=== PATIENT | female | born 1965 | race Caucasian/White ===

== ENCOUNTER 2017-04-07 14:30 | Emergency (ER) | payer MEDICAID, OTHER ==
[2017-04-07 15:07] VITALS: BMI 28.1
[2017-04-07] MEDS ORDERED: Sodium Chloride 0.9% 1,000 ML IV ONE (15:09)
--- NOTE | 2017-04-07 15:13 | C.PDOC ---
History Of Present Illness 51 y/o female presents to emergency department with complaint of bilateral flank pain, worse on the left side, for 2 days. Patient reports pain initially started as left lower abdominal pain about 1 week ago, progressively worsening, associated with urinary frequency. Patient reports noticing some blood in her urine as well. Otherwise, denies fever, chills, nausea, vomiting, diarrhea, or other associated symptoms. Time Seen by Provider: 04/07/17 15:04 Chief Complaint (Nursing): Back Pain History Per: Patient History/Exam Limitations: no limitations Onset/Duration Of Symptoms: Days Current Symptoms Are (Timing): Still Present Quality Of Discomfort: "Pain" Previous Symptoms: None Recent travel outside of the [place]: No Past Medical History Reviewed: Historical Data, Nursing Documentation, Vital Signs Vital Signs: Last Vital Signs Temp 99.2 F 04/07/17 17:20 Pulse 76 04/07/17 17:20 Resp 16 04/07/17 17:20 BP 113/66 04/07/17 17:20 Pulse Ox 99 04/07/17 17:20 - Medical History PMH: No Chronic Diseases Family History: States: Unknown Family Hx - Social History Hx Alcohol Use: No Hx Substance Use: No - Immunization History Hx Tetanus Toxoid Vaccination: No Hx Influenza Vaccination: No Hx Pneumococcal Vaccination: No Review Of Systems Constitutional: Negative for: Fever, Chills Gastrointestinal: Positive for: Other (Flank Pain). Negative for: Nausea, Vomiting Genitourinary: Positive for: Frequency, Hematuria (scant). Negative for: Vaginal Discharge, Vaginal Bleeding Skin: Negative for: Rash Neurological: Negative for: Headache, Dizziness Physical Exam - Physical Exam Appears: Non-toxic, No Acute Distress Skin: Warm, Dry Head: Atraumatic, Normacephalic Eye(s): bilateral: Normal Inspection, EOMI Oral Mucosa: Moist Neck: Normal ROM Chest: Symmetrical Cardiovascular: Rhythm Regular Respiratory: Normal Breath Sounds, No Rales, No Rhonchi, No Wheezing Gastrointestinal/Abdominal: Soft, Tenderness (left flank), No Guarding Extremity: Bilateral: Atraumatic, Normal Color And Temperature, Normal ROM Neurological/Psych: Oriented x3, Normal Speech Gait: Steady ED Course And Treatment - Laboratory Results Result Diagrams: 04/07/17 15:37 04/07/17 15:37 Lab Interpretation: Abnormal O2 Sat by Pulse Oximetry: 100 (RA) Pulse Ox Interpretation: Normal - CT Scan/US abd/pelvis Other Rad Studies (CT/US): Read By Radiologist, Radiology Report Reviewed CT/US Interpretation: Creator : Ottoniel Weaver MD. Dictator : Ottoniel Weaver MD. Medical Engineer : Bottle Hop : Ottoniel Wevaer MD. Approver2 : Report Date : 04/07/2017 16:16:43. My Comment : . PROCEDURE: CT Abdomen and Pelvis without intravenous contrast. HISTORY: left flank pain. COMPARISON : Comparison is made to the previous study dated 03/15/2012. TECHNIQUE: Axial and reformatted coronal and sagittal CT images of the abdomen and pelvis were obtained without IV or oral contrast administration.. Contrast Dose: 0. Radiation dose: Total exam DLP = 613.51 mGy-cm. This CT exam was performed using one or more of the following dose reduction techniques: Automated exposure control, adjustment of the mA and/or kV according to patient size, and/ or use of iterative reconstruction technique. FINDINGS: LOWER THORAX: Unremarkable. LIVER: Unremarkable. No gross lesion or ductal dilatation. GALLBLADDER AND BILE DUCTS: The gall bladder is contracted very small in size. PANCREAS: Unremarkable. No gross lesion or ductal dilatation. SPLEEN: Unremarkable. ADRENALS: Unremarkable. No mass. KIDNEYS AND URETERS: No evidence of nephrolithiasis. Mild left perinephric stranding seen. Slightly dilated left kidney collecting system noted. Correlate clinically for possible infectious process. The right kidney is grossly unremarkable. VASCULATURE: Unremarkable. No aortic aneurysm. BOWEL: Unremarkable. No obstruction. No gross mural thickening. APPENDIX: No evidence of appendicitis. PERITONEUM: Unremarkable. No free fluid. No free air. LYMPH NODES: Unremarkable. No enlarged lymph nodes. BLADDER: Mild urinary bladder wall thickening. REPRODUCTIVE: Unremarkable. BONES: No acute fracture. OTHER FINDINGS: None. IMPRESSION: No evidence of nephrolithiasis. Mild left perinephric stranding and slightly dilated left kidney collecting system noted. Correlate clinically for possible infectious process/ pyelonephritis or UTI. Otherwise no evidence of acute pathology in the abdomen and pelvis. Medical Decision Making Medical Decision Making: Impression: flank pain and urinary symptoms Prior records reviewed: Plan: * Labs * CT * IV NS, Toradol Progress: Labs reviewed showing mild leukocytosis 11 and hypokalemia. Patient receiving IV NS and KCL PO. CT showed no evidence of nephrolithiasis. Mild left perinephric stranding and slightly dilated left kidney collecting system which is consistent with UTI/pyelonephritis. Order IV Rocephin. Upon reevaluation patient reports feeling better, pain has much improved. She has no fever and stable vital signs, abdomen soft nontender. I discussed all results with patient and provide copy of reports. Patient stable for discharge. Advise to drink fluids and to follow up with PCP in few days. rx was given. Disposition Counseled Patient/Family Regarding: Diagnosis, Need For Followup, Rx Given - Disposition Referrals: Olga Cordova MD [Staff Provider] - Disposition: HOME/ ROUTINE Disposition Time: 17:45 Condition: IMPROVED Additional Instructions: Lanie laboratorios y CT muestran infeccin de orina. Fue tratado con antibiticos y debe continuar tomando antibiticos orales dos veces al da maryan ilana semana. Gina muchos lquidos, descanse y tambin puede joão ibuprofeno para cualquier dolor. Kanika un seguimiento con lozada mdico o clnica principal en 1 semana para ilana evaluacin ms detallada. Prescriptions: Ciprofloxacin HCl [Cipro] 500 mg PO BID #14 tab Instructions: Acute Pyelonephritis (DC) Forms: [employer] (Nepali) Print Language: GREEK - POA Present On Arrival: None - Clinical Impression Clinical Impression: Pyelonephritis
[2017-04-07] MEDS ORDERED: Sodium Chloride 0.9% 1,000 ML ONE (15:29)
[2017-04-07 15:42] LABS: BASO % 0.3 % (0.0-2.0); EOS % 0.4 % (0.0-4.0); HEMATOCRIT 35.4 % (34.0-47.0); LYMPH # 1.9 K/uL (1.0-4.3); LYMPH % 16.5 % (20.0-40.0); MEAN CORPUSCULAR HEMOGLOBIN 25.4 pg (27.0-31.0); MEAN CORPUSCULAR HGB CONC 32.1 g/dL (33.0-37.0); MEAN PLATELET VOLUME 9.2 fL (7.2-11.7); MONO # 0.8 K/uL (0.0-0.8); MONO % 7.5 % (0.0-10.0); RED CELL DISTRIBUTION WIDTH 16.3 % (11.5-14.5); WHITE BLOOD COUNT 11.2 K/uL (4.8-10.8)
[2017-04-07 15:48] LABS: RBC URINE 24 /hpf (0-3); URINE BACTERIA RARE (<OCC); URINE BILIRUBIN NEGATIVE (NEGATIVE); URINE BLOOD 2+ (NEGATIVE); URINE COLOR Yellow (YELLOW); URINE GLUCOSE (UA) NORMAL (Normal); URINE KETONE NEGATIVE (NEGATIVE); URINE LEUKOCYTE ESTERASE 1+ Leu/uL (Negative); URINE PROTEIN NEGATIVE (NEGATIVE); WBC URINE 16 /hpf (0-5)
[2017-04-07 15:55] LABS: CHLORIDE 94 mmol/L (98-107)
[2017-04-07 15:56] LABS: POTASSIUM 3.2 mmol/L (3.6-5.2); SODIUM 133 mmol/L (132-148)
[2017-04-07 15:59] LABS: ALKALINE PHOSPHATASE 128 U/L (38-126); ALT/SGPT 88 U/L (9-52); AST/SGOT 108 U/L (14-36); BILIRUBIN,TOTAL 1.4 mg/dL (0.2-1.3); BLOOD UREA NITROGEN 11 mg/dL (7-17); CARBON DIOXIDE 27 mmol/L (22-30); GFR AFRICAN-AMERICAN > 60; GLUCOSE,RANDOM 105 mg/dL (65-105); TOTAL PROTEIN 9.2 g/dL (6.3-8.3)
[2017-04-07 16:00] LABS: CALCIUM 9.9 mg/dl (8.6-10.4)
[2017-04-07] MEDS ORDERED: Potassium Chloride 20 mEq ER Tab PO STA (16:17)
--- NOTE | 2017-04-07 16:18 | CT ---
PROCEDURE: CT Abdomen and Pelvis without intravenous contrast HISTORY: left flank pain COMPARISON: Comparison is made to the previous study dated 03/15/2012 TECHNIQUE: Axial and reformatted coronal and sagittal CT images of the abdomen and pelvis were obtained without IV or oral contrast administration.. Contrast Dose: 0 Radiation dose: Total exam DLP = 613.51 mGy-cm. This CT exam was performed using one or more of the following dose reduction techniques: Automated exposure control, adjustment of the mA and/or kV according to patient size, and/or use of iterative reconstruction technique. FINDINGS: LOWER THORAX: Unremarkable. LIVER: Unremarkable. No gross lesion or ductal dilatation. GALLBLADDER AND BILE DUCTS: The gall bladder is contracted very small in size. PANCREAS: Unremarkable. No gross lesion or ductal dilatation. SPLEEN: Unremarkable. ADRENALS: Unremarkable. No mass. KIDNEYS AND URETERS: No evidence of nephrolithiasis. Mild left perinephric stranding seen. Slightly dilated left kidney collecting system noted. Correlate clinically for possible infectious process. The right kidney is grossly unremarkable. VASCULATURE: Unremarkable. No aortic aneurysm. BOWEL: Unremarkable. No obstruction. No gross mural thickening. APPENDIX: No evidence of appendicitis. PERITONEUM: Unremarkable. No free fluid. No free air. LYMPH NODES: Unremarkable. No enlarged lymph nodes. BLADDER: Mild urinary bladder wall thickening. REPRODUCTIVE: Unremarkable. BONES: No acute fracture. OTHER FINDINGS: None. IMPRESSION: No evidence of nephrolithiasis. Mild left perinephric stranding and slightly dilated left kidney collecting system noted. Correlate clinically for possible infectious process/ pyelonephritis or UTI. Otherwise no evidence of acute pathology in the abdomen and pelvis.
[2017-04-07] MEDS ORDERED: Potassium Chloride 20 mEq ER Tab PO ONE (16:25)
[2017-04-07] MEDS ORDERED: cefTRIAXone IV 1 gm in Dextros 50 ML IV STA (16:46)
[2017-04-07] MEDS ORDERED: cefTRIAXone IV 1 gm in Dextros 50 ML IVPB ONE (17:07)
[2017-04-07 17:21] VITALS: BP 113/66; PULSE 76; RESP 16; TEMP 99.2
[2017-04-07 18:56] VITALS: O2SAT 100
== END 2017-04-07 17:45 | disposition home or self-care (01) ==
LOC: C.ER 14:30
DX: N12 Tubulo-interstitial nephritis, not specified as acute or chronic (principal)
CPT/HCPCS: 74176; 80053; 81001; 83690; 85025; 87086; 87181; 96361; 96365; 96375; 99283; J0696; J1885; J2405; J7040

== ENCOUNTER 2017-05-27 09:03 | Emergency (ER) | payer MEDICAID, OTHER ==
[2017-05-27 09:04] VITALS: BMI 28.1
[2017-05-27 09:10] VITALS: BP 152/86; PULSE 75; RESP 19; TEMP 98.1; O2SAT 96
--- NOTE | 2017-05-27 09:32 | C.PDOC ---
History Of Present Illness 51 yr old female presents to the ER with complaints of sinus congestion, non productive cough and subjective fever for the past 1 week. Patient reports minimal relief with phenergan cough syrup (using from other family member). Patient denies history of smoking, chest pain, SOB, ROSARIO, nausea, vomiting or headache. 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 +MIN RELIEF W PHENERGAN COUGH SYRUP (USING FROM OTHER FAMILY MEMBER). NO SOB, ROSARIO. DENIES SMOKING. EXAM NONTOXIC NARD HEENT +SINUS TAYO W RHINORRHEA LUNGS CTA B/L NO W/R/R REMAINDER NEG MDM REQUESTING DIFF COUGH RX PRESCRIPTION. VIRAL Time Seen by Provider: 05/27/17 09:20 Chief Complaint (Nursing): Flu-like Symptoms History Per: Patient History/Exam Limitations: no limitations Onset/Duration Of Symptoms: Days (1 week) Past Medical History Reviewed: Historical Data, Nursing Documentation, Vital Signs Vital Signs: Last Vital Signs Temp 98.1 F 05/27/17 09:09 Pulse 75 05/27/17 09:09 Resp 19 05/27/17 09:09 BP 152/86 H 05/27/17 09:09 Pulse Ox 96 05/27/17 10:23 Family History: States: No Known Family Hx - Social History Hx Alcohol Use: No Hx Substance Use: No - Immunization History Hx Tetanus Toxoid Vaccination: No Hx Influenza Vaccination: No Hx Pneumococcal Vaccination: No Review Of Systems Except As Marked, All Systems Reviewed And Found Negative. Constitutional: Positive for: Fever (Subjective) ENT: Positive for: Other ((+) Sinus congestion) Cardiovascular: Negative for: Chest Pain Respiratory: Positive for: Cough (Non productive). Negative for: Shortness of Breath Gastrointestinal: Negative for: Nausea, Vomiting Neurological: Negative for: Headache Physical Exam - Physical Exam Appears: Non-toxic, No Acute Distress, Other (NARD) Skin: Warm, Dry, No Rash Head: Atraumatic, Normacephalic Eye(s): bilateral: Normal Inspection, PERRL, EOMI Ear(s): Bilateral: Normal Nose: Other (Sinus congestion with rhinorrhea) Oral Mucosa: Moist Neck: Normal, Normal ROM, Supple Cardiovascular: Rhythm Regular, No Murmur Respiratory: Normal Breath Sounds, No Rales, No Rhonchi, No Stridor, No Wheezing Extremity: Normal ROM, No Swelling Neurological/Psych: Oriented x3, Normal Speech, Normal Motor ED Course And Treatment O2 Sat by Pulse Oximetry: 96 (RA) Pulse Ox Interpretation: Normal Medical Decision Making Medical Decision Making: NOTE: REQUESTING DIFF COUGH RX PRESCRIPTION. VIRAL Disposition Counseled Patient/Family Regarding: Diagnosis, Need For Followup, Rx Given - Disposition Referrals: [facility] [Outside] [facility] [Outside] Disposition: HOME/ ROUTINE Disposition Time: 09:31 Condition: GOOD Prescriptions: Benzonatate [Tessalon Perles] 200 mg PO TID PRN #15 sgl PRN Reason: Cough Pseudoephedrine HCl [Sudafed 24 Hour] 240 mg PO DAILY PRN #1 unit PRN Reason: Sinus Symptoms Instructions: Cold Symptoms (ED) Forms: [employer] (Danish) Print Language: SINHALA - Clinical Impression Clinical Impression: Cold - Scribe Statement The provider has reviewed the documentation as recorded by the Lee Carrera Provider Attestation: All medical record entries made by the Aleksandraibdeni were at my direction and personally dictated by me. I have reviewed the chart and agree that the record accurately reflects my personal performance of the history, physical exam, medical decision making, and the department course for this patient. I have also personally directed, reviewed, and agree with the discharge instructions and disposition.
== END 2017-05-27 09:35 | disposition home or self-care (01) ==
LOC: C.ER 09:03
DX: J00 Acute nasopharyngitis [common cold] (principal)

== ENCOUNTER 2017-09-15 11:38 | Emergency (ER) | payer OTHER ==
[2017-09-15 11:38] VITALS: BMI 28.1
[2017-09-15] MEDS ORDERED: Sodium Chloride 0.9% 1,000 ML IV ONE (12:18)
--- NOTE | 2017-09-15 12:18 | C.PDOC ---
History Of Present Illness 51-year-old female, presents to the emergency department with multiple complaints. Patient states she has been experiencing a frontal headache, described as pounding, for the past four weeks, with associated bilateral eye pain. Patient is taking Advil at home with mild improvement. Additionally, states she has been experiencing palpitations intermittently for six weeks, occasional right chest discomfort, and right leg pain. Patient does not have a doctor. Last check up in [place] eight months ago, where she was told that she is pre-diabetic. Denies visual changes, dizziness, vomiting, numbness/ weakness, shortness of breath or any other associated symptoms. No other complaints at this time. Time Seen by Provider: 09/15/17 11:59 Chief Complaint (Nursing): Headache History Per: Patient History/Exam Limitations: no limitations Past Medical History Reviewed: Historical Data, Nursing Documentation, Vital Signs Vital Signs: Last Vital Signs Temp 98.2 F 09/15/17 11:49 Pulse 70 09/15/17 13:12 Resp 18 09/15/17 13:12 BP 116/73 09/15/17 13:12 Pulse Ox 96 09/15/17 15:32 - Medical History PMH: No Chronic Diseases Surgical History: No Surg Hx Family History: States: No Known Family Hx - Social History Hx Alcohol Use: Yes Hx Substance Use: No - Immunization History Hx Tetanus Toxoid Vaccination: No Hx Influenza Vaccination: No Hx Pneumococcal Vaccination: No Review Of Systems Constitutional: Negative for: Fever Eyes: Positive for: Pain Cardiovascular: Positive for: Palpitations Respiratory: Negative for: Cough, Shortness of Breath Gastrointestinal: Negative for: Vomiting Musculoskeletal: Positive for: Leg Pain Skin: Negative for: Rash Neurological: Positive for: Headache. Negative for: Weakness, Numbness, Dizziness Physical Exam - Physical Exam Appears: Non-toxic, No Acute Distress Skin: Warm, Dry, No Rash Head: Atraumatic, Normacephalic, No Tenderness Eye(s): bilateral: Normal Inspection, PERRL, EOMI Nose: Normal Oral Mucosa: Moist Lips: Normal Appearing Neck: Normal ROM, Other (No goiter, No thyroid tenderness. No nodules) Lymphatic: Normal Exam, No Adenopathy Cardiovascular: Rhythm Regular, No Murmur Respiratory: Normal Breath Sounds, No Accessory Muscle Use, No Wheezing Gastrointestinal/Abdominal: Soft, No Tenderness, No Guarding Back: Normal Inspection, No Vertebral Tenderness, No Paraspinal Tenderness Extremity: No Deformity, No Swelling Neurological/Psych: Oriented x3, Normal Speech, Normal Cranial Nerves, Normal Motor, Normal Sensation, Other (No focal deficit) Gait: Steady ED Course And Treatment - Laboratory Results Result Diagrams: 09/15/17 12:33 09/15/17 12:33 Lab Interpretation: No Acute Changes ECG: Interpreted By Me, Viewed By Me ECG Rhythm: Sinus Rhythm ECG Interpretation: No Acute Changes Rate From EC O2 Sat by Pulse Oximetry: 96 (RA) Pulse Ox Interpretation: Normal - CT Scan/US CT HEAD Other Rad Studies (CT/US): Read By Radiologist, Radiology Report Reviewed CT/US Interpretation: Accession No. : [id number]. Patient Name / ID : TONJA JACKSON R / [id number]. Exam Date : 09/15/2017 12:37:38 ( Approved ). Study Comment : Sex / Age : F / 51Y. Creator : Sowmya Ibrahim. Dictator : Heavy Duty Truck Mechanic : Lathe Spotter : Rahul Mendez MD. Approver2 : Report Date : 12:41:35. My Comment : . PROCEDURE: CT scan of the brain 2017. HISTORY: Headache frontal x 4 weeks. COMPARISON: None available. TECHNIQUE: Axial computed tomography images were obtained through the head/ brain without intravenous contrast. Radiation dose: Total exam DLP = 920.17 mGy-cm. This CT exam was performed using one or more of the following dose reduction techniques: Automated exposure control, adjustment of the mA and/or kV according to patient size, and/or use of iterative reconstruction technique. FINDINGS: HEMORRHAGE: No acute parenchymal, subarachnoid or extra-axial hemorrhage. . BRAIN: No mass effect or edema. No atrophy or chronic microvascular ischemic changes. VENTRICLES: No obstructive hydrocephalus. CALVARIUM: There are no acute calvarial fractures. OpenUnremarkable. PARANASAL SINUSES: Unremarkable as visualized. No significant inflammatory changes. MASTOID AIR CELLS: Unremarkable as visualized. No inflammatory changes. OTHER FINDINGS: None. IMPRESSION: No acute intracranial hemorrhage. Medical Decision Making Medical Decision Making: Impression: headache, palpitations, hot flashes; symptoms likely related to menopause, thyroid or anxiety Plan: * Labs * Urine * Head CT * IV NS, Reglan, Tylenol Progress: Labs reviewed and unremarkable, no abnormality in Thyroid function Head CT shows No acute intracranial hemorrhage. Re-Eval: Patient resting supine on stretcher in no distress. She reports feeling better, headache resolved. She has no fever or nuchal rigidity. Vital signs are stable and no neuro deficits. Patient is stable for discharge. I discussed results and provided copy of lab and Ct report. 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 Disposition Counseled Patient/Family Regarding: Diagnosis, Need For Followup, Rx Given - Disposition Referrals: Olga Cordova MD [Staff Provider] - Disposition: HOME/ ROUTINE Disposition Time: 13:39 Condition: IMPROVED Additional Instructions: hacer un seguimiento con ob / administrative judge y clnica para ms cuidados [place] medicamento para el dolor segn sea necesario Prescriptions: Ibuprofen [Motrin] 600 mg PO Q8 #30 tab Instructions: Menopause Forms: [employer] (Solomon Islander) Print Language: ALGERIAN - POA Present On Arrival: None - Clinical Impression Clinical Impression: Headache, Menopausal hot flushes - Scribe Statement The provider has reviewed the documentation as recorded by the Scribe (Gladis Norwood) All medical record entries made by the Scribe were at my direction and personally dictated by me. I have reviewed the chart and agree that the record accurately reflects my personal performance of the history, physical exam, medical decision making, and the department course for this patient. I have also personally directed, reviewed, and agree with the discharge instructions and disposition.
[2017-09-15 12:42] LABS: BASO % 0.3 % (0.0-2.0); EOS # 0.3 K/uL (0.0-0.7); EOS % 4.1 % (0.0-4.0); HEMOGLOBIN 12.6 g/dL (11.0-16.0); LYMPH # 2.6 K/uL (1.0-4.3); LYMPH % 36.6 % (20.0-40.0); MEAN CELL VOLUME 77.9 fL (81.0-99.0); MEAN CORPUSCULAR HEMOGLOBIN 25.3 pg (27.0-31.0); MEAN CORPUSCULAR HGB CONC 32.4 g/dL (33.0-37.0); MEAN PLATELET VOLUME 9.2 fL (7.2-11.7); MONO # 0.6 K/uL (0.0-0.8); MONO % 7.7 % (0.0-10.0); NEUT # 3.7 K/uL (1.8-7.0); NEUT % 51.3 % (50.0-75.0); RBC 4.97 Mil/uL (3.80-5.20); RED CELL DISTRIBUTION WIDTH 17.8 % (11.5-14.5); WHITE BLOOD COUNT 7.2 K/uL (4.8-10.8)
[2017-09-15 12:53] LABS: SQUAMOUS EPITHIAL 12 /hpf (0-5); URINE BILIRUBIN NEGATIVE (NEGATIVE); URINE BLOOD NEGATIVE (NEGATIVE); URINE CLARITY Hazy (Clear); URINE COLOR Yellow (YELLOW); URINE GLUCOSE (UA) NORMAL (Normal); URINE LEUKOCYTE ESTERASE TRACE Leu/uL (Negative); URINE PROTEIN NEGATIVE (NEGATIVE); URINE UROBILINOGEN NORMAL mg/dL (0.2-1.0)
[2017-09-15 12:54] LABS: HCG,QUALITATIVE URINE NEGATIVE (NEGATIVE)
[2017-09-15 12:55] VITALS: TEMP 98.2
[2017-09-15 12:55] LABS: ALB/GLOB RATIO 1.2 (1.0-2.1); ALT/SGPT 53 U/L (9-52); AST/SGOT 43 U/L (14-36); BLOOD UREA NITROGEN 14 mg/dL (7-17); CALCIUM 10.2 mg/dl (8.6-10.4); GFR AFRICAN-AMERICAN > 60; GFR NON-AFRICAN AMERICAN > 60
--- NOTE | 2017-09-15 13:03 | CT ---
PROCEDURE: CT scan of the brain 09/15/2017. HISTORY: Headache frontal x 4 weeks COMPARISON: None available. TECHNIQUE: Axial computed tomography images were obtained through the head/brain without intravenous contrast. Radiation dose: Total exam DLP = 920.17 mGy-cm. This CT exam was performed using one or more of the following dose reduction techniques: Automated exposure control, adjustment of the mA and/or kV according to patient size, and/or use of iterative reconstruction technique. FINDINGS: HEMORRHAGE: No acute parenchymal, subarachnoid or extra-axial hemorrhage. . BRAIN: No mass effect or edema. No atrophy or chronic microvascular ischemic changes. VENTRICLES: No obstructive hydrocephalus. CALVARIUM: There are no acute calvarial fractures. OpenUnremarkable. PARANASAL SINUSES: Unremarkable as visualized. No significant inflammatory changes. MASTOID AIR CELLS: Unremarkable as visualized. No inflammatory changes. OTHER FINDINGS: None. IMPRESSION: No acute intracranial hemorrhage.
[2017-09-15 13:13] VITALS: BP 116/73; PULSE 70; RESP 18
[2017-09-15 13:26] LABS: T3 1.94 nmol/L (1.49-2.60)
[2017-09-15 13:42] VITALS: O2SAT 96
== END 2017-09-15 13:50 | disposition home or self-care (01) ==
LOC: C.ER 11:38
DX: R51 Headache (principal); N95.1 Menopausal and female climacteric states
CPT/HCPCS: 70450; 80053; 81001; 84439; 84443; 84480; 84703; 85025; 96361; 96374; 99285; J2765; J7040

== ENCOUNTER 2017-10-24 09:55 | Emergency (ER) | payer OTHER ==
[2017-10-24 09:55] VITALS: BMI 28.1
--- NOTE | 2017-10-24 10:54 | C.PDOC ---
History Of Present Illness 51 y/o female presents to ED with c/o left thumb pain radiating to wrist and elbow for 3 days. Patient reports weakness to left hand and states she cannot hop picker objects. Patient states she has been having same symptoms on right hand intermittently and denies trauma, fever, chills, nausea, vomiting or any other complaints at this time. Time Seen by Provider: 10/24/17 10:23 Chief Complaint (Nursing): Upper Extremity Problem/Injury History Per: Patient History/Exam Limitations: no limitations Onset/Duration Of Symptoms: Days Current Symptoms Are (Timing): Still Present Quality: "Pain" Past Medical History Reviewed: Historical Data, Nursing Documentation, Vital Signs Vital Signs: Last Vital Signs Temp 98.7 F 10/24/17 10:24 Pulse 62 10/24/17 10:24 Resp 18 10/24/17 10:24 BP 104/66 10/24/17 10:24 Pulse Ox 100 10/24/17 10:24 - Medical History PMH: No Chronic Diseases Surgical History: No Surg Hx Family History: States: No Known Family Hx - Social History Hx Alcohol Use: No Hx Substance Use: No - Immunization History Hx Tetanus Toxoid Vaccination: No Hx Influenza Vaccination: No Hx Pneumococcal Vaccination: No Review Of Systems Constitutional: Negative for: Fever, Chills Gastrointestinal: Negative for: Nausea, Vomiting Musculoskeletal: Positive for: Hand Pain Skin: Negative for: Rash Neurological: Positive for: Weakness. Negative for: Numbness Physical Exam - Physical Exam Appears: Non-toxic, No Acute Distress Skin: Warm, Dry, No Rash Head: Atraumatic, Normacephalic Eye(s): bilateral: Normal Inspection Oral Mucosa: Moist Cardiovascular: Rhythm Regular Respiratory: Normal Breath Sounds, No Rales, No Rhonchi, No Wheezing Extremity: Tenderness (to left 1st PIP), Capillary Refill (<2 seconds), No Deformity, No Swelling Pulses: Left Radial: Normal Neurological/Psych: Oriented x3, Normal Speech, Normal Cognition ED Course And Treatment O2 Sat by Pulse Oximetry: 100 (RA) Pulse Ox Interpretation: Normal Progress Note: Motrin administered Disposition Counseled Patient/Family Regarding: Diagnosis, Need For Followup, Rx Given - Disposition Referrals: [facility] [Outside] Disposition: HOME/ ROUTINE Disposition Time: 10:52 Condition: STABLE Additional Instructions: Por favor siga en la clinica. [place] terapia fisica para el dolor de vinicio. Prescriptions: Ibuprofen [Motrin] 1 tab PO TID PRN #30 tab PRN Reason: Pain Instructions: Joint Pain Forms: Gen Discharge Inst Puerto Rican, [facility] (Puerto Rican), Work Excuse - Clinical Impression Clinical Impression: Joint pain - Scribe Statement The provider has reviewed the documentation as recorded by the Scribdeni Calzada All medical record entries made by the Scribe were at my direction and personally dictated by me. I have reviewed the chart and agree that the record accurately reflects my personal performance of the history, physical exam, medical decision making, and the department course for this patient. I have also personally directed, reviewed, and agree with the discharge instructions and disposition.
[2017-10-24 11:06] VITALS: BP 104/66; PULSE 62; RESP 18; TEMP 98.7; O2SAT 100
== END 2017-10-24 11:07 | disposition home or self-care (01) ==
LOC: C.ER 09:55
DX: M25.50 Pain in unspecified joint (principal)

== ENCOUNTER 2018-08-09 07:58 | Day surgery (SDC) | payer MEDICAID ==
[2018-08-09 08:25] VITALS: BMI 28.0
[2018-08-09] MEDS ORDERED: Lidocaine Hydrochloride 10 ML INJ ONE (09:39)
[2018-08-09] MEDS ORDERED: Propofol 10 mg/ml Inj (20 ML) ONE (09:39)
[2018-08-09] MEDS ORDERED: Lactated Ringer's 500 ML IV SCH (10:00)
[2018-08-09 10:58] VITALS: TEMP 97
[2018-08-09 11:01] VITALS: O2SAT 99
[2018-08-09 11:06] VITALS: BP 125/78; PULSE 75; RESP 20
== END 2018-08-09 10:45 | disposition home or self-care (01) ==
LOC: C.ENDO 07:58
PROVIDERS: ATTEND Internal Medicine Gastroenterology
DX: K29.00 Acute gastritis without bleeding (principal); B96.81 Helicobacter pylori [H. pylori] as the cause of diseases classified elsewhere; K21.9 Gastro-esophageal reflux disease without esophagitis
CPT/HCPCS: 43239; 88305; J2704; J3010

== ENCOUNTER 2018-10-04 09:15 | Day surgery (SDC) | payer MEDICAID ==
[2018-10-04 09:35] VITALS: BMI 25.4
[2018-10-04] MEDS ORDERED: Propofol 10 mg/ml Inj (20 ML) ONE (10:36)
[2018-10-04 11:45] VITALS: TEMP 97.8
[2018-10-04 11:57] VITALS: BP 118/62; PULSE 58; RESP 15; O2SAT 99
== END 2018-10-04 12:00 | disposition home or self-care (01) ==
LOC: C.ENDO 09:15
PROVIDERS: ATTEND Internal Medicine Gastroenterology
DX: K64.8 Other hemorrhoids (principal)
CPT/HCPCS: 45378; J2704